=== PATIENT | female | born 1945 | race Caucasian/White ===

== ENCOUNTER 2023-03-10 13:11 | Outpatient (OUT) | payer MEDICARE, SELFPAY ==
--- NOTE | 2023-03-10 13:30 | PM.CN ---
Consult Note: HPI Data of Consult Patient: known to practice within the last 3 years Consult date: 03/10/23 Requesting Physician: SUSAN ROBIN NP Primary Care Provider: ARGELIA ENRIQUE Consult Narrative Narrative: Patient is here for f/u of TFNB on 11/23/22. She recieved very significant relief from procedure continued today. Uses walker. No new sensorimotor sx or new bowel or bladder issues. Medication regimen is controlling pain and assisting with ability to complete ADLs. She does not want any further interventions at this time. She feels stable on her medications. Pain is left lower back rad to left thigh. cc:: CC: SUSAN ROBIN NP Review of Systems ROS Status of ROS 10 or more systems reviewed and unremarkable except as noted in history and below Musculoskeletal Reports: back pain Exam Constitutional Documenting provider has reviewed patient's vital signs: yes Common normals: no apparent distress, average body habitus, oriented x3, no limitations, alert and well nourished General appearance: cooperative, comfortable and well developed Orientation/consciousness: Yes awake, Yes oriented to person, Yes oriented to place and Yes oriented to time HENMT Common normals: normocephalic, nasal mucous membranes and turbinates normal and moist oral mucous membranes Respiratory Common normals: normal respiratory effort, no retractions and no use of accessory muscles Effort & inspection: able to speak in complete sentences and symmetric chest movement Back & Pelvis Lumbar spine/lower back: normal to inspection, ROM limited, pain with ROM, paraspinal muscle tenderness, paraspinal muscle spasm and other soft tissue findings (positive facet loading left, neg lili. neg SLR) Other: muscle strength 4/5 and sensation intact bilat LE Assessment and Plan Assessment and Plan (1) Lumbar radiculopathy: Plan refill requip f/u in 3 months
== END 2023-03-10 13:12 ==
LOC: PM 13:12
PROVIDERS: PCP Family Medicine; Visit Provider Nurse Practitioner
DX: M54.16 Radiculopathy, lumbar region (principal)
CPT/HCPCS: G0463

== ENCOUNTER 2023-06-27 13:38 | Outpatient (OUT) | payer MEDICARE, SELFPAY ==
--- NOTE | 2023-06-27 16:02 | PM.CN ---
Consult Note: HPI Data of Consult Patient: known to practice within the last 3 years Consult date: 06/27/23 Requesting Physician: Omar Ruiz MD Primary Care Provider: ARGELIA ENRIQUE Consult Narrative Reason for consult: low back, left leg pain Narrative: 78yof who presents for assessment. worsening pain that radiates from low back into left lower extremity. has engaged in provider directed home exercise program for >6 weeks, which has not helped. utilizes norco on occasion. has had lumbar epidural steroid injections previously, which have provided >50% relief for >3 months. recent lumbar mri with moderate stenosis at l4-5 and l5-s1. denies adverse medication side effects. cc:: CC: Omar Ruiz MD Review of Systems ROS Status of ROS 10 or more systems reviewed and unremarkable except as noted in history and below PFSH PFS Medical History Surgical History Meds Home Medications and Allergies Home Medications Medication Instructions Recorded Confirmed Type acetaminophen 325 mg capsule 325 mg PO Q6H PRN pain 03/10/23 03/10/23 History (Tylenol) atorvastatin 20 mg tablet 20 mg PO DAILY 03/10/23 03/10/23 History diclofenac sodium 75 mg 75 mg PO BID 03/10/23 03/10/23 History tablet,delayed release ferrous sulfate 325 mg (65 mg 325 mg PO DAILY 03/10/23 03/10/23 History iron) tablet gabapentin 300 mg capsule 300 mg PO TID 03/10/23 03/10/23 History hydrochlorothiazide 25 mg tablet 25 mg PO DAILY 03/10/23 03/10/23 History hydrocodone 5 mg-acetaminophen 325 1 tab PO DAILY PRN pain 03/10/23 03/10/23 History mg tablet methocarbamol 750 mg tablet 750 mg PO BID PRN muscle spasticity 03/10/23 03/10/23 History metoprolol tartrate 25 mg tablet 25 mg PO DAILY 03/10/23 03/10/23 History paroxetine HCl 20 mg tablet (Paxil) 20 mg PO DAILY 03/10/23 03/10/23 History ropinirole 0.25 mg tablet 0.25 mg PO DAILY 03/10/23 03/10/23 History hydrocodone 5 mg-acetaminophen 325 1 tab PO DAILY PRN pain #30 tabs 06/27/23 Rx mg tablet Allergies Allergy/AdvReac Type Severity Reaction Status Date / Time erythromycin base Allergy Mild Unknown Verified 03/10/23 14:34 Penicillins Allergy Mild Unknown Verified 03/10/23 14:34 Exam Narrative Exam Narrative: Psych-alert and oriented x 3. Attentive and appropriate, constitutionally normal, displays normal mood and affect per situation. There are no obvious deficits in memory, reasoning, or intellect.? Skin-no obvious rashes, bruising, erythema noted to the patient's area of pain.? Extremities- extremities are warm with minimal edema and palpable pulses. Lumbar-tenderness to palpation noted in the lumbar spine and paraspinal musculature. Pain is not elicited with flexion, extension, and lateral rotation of the lumbar spine. Range of motion is not diminished with these motions. Facet loading maneuvers are negative.? Strength-noted to be unremarkable with the exception of decreased strength rated at 4 out of 5 in left quadriceps femoris, anterior tibialis. Sensory-no notable sensory deficits in the bilateral lower extremities to touch or pinprick in all dermatomal distributions with the exception to decreased sensation to the left L4, 5 dermatomal distribution Coordination remains intact.? Gait remains non-antalgic. Assessment and Plan Assessment and Plan (1) Lumbar radiculopathy: (2) Lumbar stenosis with neurogenic claudication: Plan 78yof who presents for assessment. imaging reviewed, as noted above. given symptoms and imaging, prudent to attempt left l4-5, l5-s1 TFESI to provide analgesia. she is in agreement. medications were reviewed. i agree to refill Trendy Mondays. follow up after procedure.
== END 2023-06-27 13:39 | disposition home or self-care (01) ==
PROVIDERS: PCP Family Medicine; Visit Provider Anesthesiology
DX: M54.16 Radiculopathy, lumbar region (principal); M48.062 Spinal stenosis, lumbar region with neurogenic claudication
CPT/HCPCS: G0463

== ENCOUNTER 2024-01-04 13:51 | Outpatient (OUT) | payer MEDICARE, SELFPAY ==
--- NOTE | 2024-01-04 14:15 | PM.CN ---
Consult Note: HPI Data of Consult Patient: known to practice within the last 3 years Consult date: 06/27/23 Requesting Physician: Chanel Fernando NP Primary Care Provider: ARGELIA ENRIQUE Consult Narrative Reason for consult: low back, left leg pain Narrative: 78yof who presents for assessment. worsening pain that radiates from low back into left lower extremity. has engaged in provider directed home exercise program for >6 weeks, which has not helped. utilizes norco on occasion. has had lumbar epidural steroid injections previously, which have provided >50% relief for >3 months. recent lumbar mri with moderate stenosis at l4-5 and l5-s1. denies adverse medication side effects. Pain today 2/10 increasing to 6/10 with activity. cc:: CC: Chanel Fernando NP Review of Systems ROS Status of ROS 10 or more systems reviewed and unremarkable except as noted in history and below Musculoskeletal Reports: back pain and joint pain PFSH ON LICENSE OF [facility] Medical History Fractured bone ?T14.8XXA - Other injury of unspecified body region, initial encounter (ICD-10) Upper back pain ?M54.9 - Dorsalgia, unspecified (ICD-10) Low back pain ?M54.50 - Low back pain, unspecified (ICD-10) Osteoporosis ?M81.0 - Age-related osteoporosis without current pathological fracture (ICD-10) Osteoarthritis ?M19.90 - Unspecified osteoarthritis, unspecified site (ICD-10) Anemia ?D64.9 - Anemia, unspecified (ICD-10) TIA (transient ischemic attack) ?G45.9 - Transient cerebral ischemic attack, unspecified (ICD-10) Obsessive compulsive disorder ?F42.9 - Obsessive-compulsive disorder, unspecified (ICD-10) Obesity ?E66.9 - Obesity, unspecified (ICD-10) Hiatal hernia ?K44.9 - Diaphragmatic hernia without obstruction or gangrene (ICD-10) Heartburn ?R12 - Heartburn (ICD-10) COPD (chronic obstructive pulmonary disease) ?J44.9 - Chronic obstructive pulmonary disease, unspecified (ICD-10) Asthma ?J45.909 - Unspecified asthma, uncomplicated (ICD-10) Sleep apnea ?G47.30 - Sleep apnea, unspecified (ICD-10) Irregular heart beat ?I49.9 - Cardiac arrhythmia, unspecified (ICD-10) High cholesterol ?E78.00 - Pure hypercholesterolemia, unspecified (ICD-10) Hypertension ?I10 - Essential (primary) hypertension (ICD-10) Surgical History History of tonsillectomy ?Z90.89 - Acquired absence of other organs (ICD-10) History of phacoemulsification of cataract of both eyes with intraocular lens implantation ?Z98.41 - Cataract extraction status, right eye (ICD-10) ?Z98.42 - Cataract extraction status, left eye (ICD-10) ?Z96.1 - Presence of intraocular lens (ICD-10) Hx of cholecystectomy ?Z90.49 - Acquired absence of other specified parts of digestive tract (ICD-10) S/P rotator cuff repair ?Z98.890 - Other specified postprocedural states (ICD-10) Meds Home Medications and Allergies Home Medications ?Medication ?Instructions ?Recorded ?Confirmed ?Type acetaminophen 325 mg capsule 325 mg PO Q6H PRN pain 03/10/23 03/10/23 History (Tylenol) atorvastatin 20 mg tablet 20 mg PO DAILY 03/10/23 03/10/23 History diclofenac sodium 75 mg 75 mg PO BID 03/10/23 03/10/23 History tablet,delayed release ferrous sulfate 325 mg (65 mg 325 mg PO DAILY 03/10/23 03/10/23 History iron) tablet gabapentin 300 mg capsule 300 mg PO TID 03/10/23 03/10/23 History hydrochlorothiazide 25 mg tablet 25 mg PO DAILY 03/10/23 03/10/23 History hydrocodone 5 mg-acetaminophen 325 1 tab PO DAILY PRN pain 03/10/23 03/10/23 History mg tablet metoprolol tartrate 25 mg tablet 25 mg PO DAILY 03/10/23 03/10/23 History paroxetine HCl 20 mg tablet (Paxil) 20 mg PO DAILY 03/10/23 03/10/23 History ropinirole 0.25 mg tablet 0.25 mg PO DAILY 03/10/23 03/10/23 History hydrocodone 5 mg-acetaminophen 325 1 tab PO DAILY PRN pain #30 tabs 06/27/23 Rx mg tablet methocarbamol 750 mg tablet 750 mg PO BID PRN muscle 12/14/23 Rx spasticity #60 tabs Allergies Allergy/AdvReac Type Severity Reaction Status Date / Time erythromycin base Allergy Mild Unknown Verified 03/10/23 14:34 Penicillins Allergy Mild Unknown Verified 03/10/23 14:34 Exam Narrative Exam Narrative: Psych-alert and oriented x 3. Attentive and appropriate, constitutionally normal, displays normal mood and affect per situation. There are no obvious deficits in memory, reasoning, or intellect.? Skin-no obvious rashes, bruising, erythema noted to the patient's area of pain.? Extremities- extremities are warm with minimal edema and palpable pulses. Lumbar-tenderness to palpation noted in the lumbar spine and paraspinal musculature. Pain is not elicited with flexion, extension, and lateral rotation of the lumbar spine. Range of motion is not diminished with these motions. Facet loading maneuvers are negative.? Strength-noted to be unremarkable with the exception of decreased strength rated at 4 out of 5 in left quadriceps femoris, anterior tibialis. Sensory-no notable sensory deficits in the bilateral lower extremities to touch or pinprick in all dermatomal distributions with the exception to decreased sensation to the left L4, 5 dermatomal distribution Coordination remains intact.? Gait remains non-antalgic. Constitutional Documenting provider has reviewed patient's vital signs: yes Common normals: no apparent distress, oriented x3, healthy appearing, alert and well nourished General appearance: cooperative HENIL Common normals: normocephalic, hearing grossly normal bilaterally and moist oral mucous membranes Head and scalp: normocephalic Eye Common normals: PERRL Pupil: PERRL Neck & C-Spine Common normals: full ROM General: normal visual inspection Chest Common normals: inspection of chest normal Respiratory Common normals: normal respiratory effort, no retractions and no use of accessory muscles Neuro Common normals: oriented x3, CN's II-XII intact bilaterally, moves all extremities, no focal motor deficits, no sensory deficits noted and deep tendon reflexes 2+ bilaterally Sensorium/orientation: alert Motor exam: strength 5/5 throughout and no movement abnormalities noted Psych Common normals: mental status grossly normal, thought process normal, cooperative, affect normal, speech normal and activity/motor behavior normal Speech: normal speech Thought process: normal thought process Results Additional Findings Additional findings: If on a controlled substance or opioids, I have checked an [place] report on this patient and there are no aberrancies noted in the prescribing history.??If on a controlled substance or opioid a drug screen was completed and reviewed within the last year, and if there has not been a drug screen completed we ordered one today to monitor higher risk, state monitored pain medication use. As part of providing excellent, safe, comprehensive care, the following was completed at our patient's visit: 1. A medication reconciliation and review to ensure accurate knowledge of current/active medications, including asking our patients to inform us about any [id number] medications or herbal remedies/nutritional supplements/alternative remedies. 2. A review to specifically ensure our patients have had annual screening for screening for depression, screening for tobacco use, and screening for unhealthy alcohol use. For concerning screenings had a discussion with the patient, provided patient education, and recommended follow-up with primary care provider when appropriate. If patient noted with a risk of falling, they received education on strength, gait, and balance training to prevent future risk of falling. Assessment and Plan Assessment and Plan (1) Lumbar radiculopathy: (2) Lumbar stenosis with neurogenic claudication: (3) Myofascial pain: Plan 78yof who presents for assessment. imaging reviewed, as noted above. given symptoms and imaging, prudent to attempt left l4-5, l5-s1 TFESI to provide analgesia. she is in agreement. medications were reviewed. pt has not filled norco in greater than 3 months, utilizing very PRN with pain relief and functional improvement, update UDS today continue gabapentin through Dr Sanders continue robaxin 500mg BID PRN myofascial pain f/u 2 weeks after injections
== END 2024-01-04 13:52 | disposition home or self-care (01) ==
LOC: PM 13:51
PROVIDERS: PCP Family Medicine; Visit Provider Nurse Practitioner
DX: M54.16 Radiculopathy, lumbar region (principal); M48.062 Spinal stenosis, lumbar region with neurogenic claudication; M79.18 Myalgia, other site
CPT/HCPCS: G0463